=== PATIENT | male | born 1940 | race Caucasian/White ===

== ENCOUNTER 2018-02-08 09:12 | Inpatient (IN) | payer OTHER ==
[~2018-02-08 09:12] MED LIST: BUPIVACAINE 0.75%/DEXT (SPINAL) 2 ML INJ
[2018-02-08] MEDS ORDERED: SOD CHLORIDE 0.9% 1,000 ML IV (09:55)
[2018-02-08] MEDS ORDERED: MAGNESIUM HYDROXIDE 30ML CUP PO (10:00)
[2018-02-08] MEDS ORDERED: NA PHOSPHATE/BIPHOS 133 ML ENEMA PR (10:00)
[2018-02-08] MEDS ORDERED: BISACODYL 10 MG SUPP PR (10:00)
[2018-02-08] MEDS ORDERED: DIPHENHYDRAMINE 50 MG INJ IV ×2 (10:00→13:00)
[2018-02-08] MEDS ORDERED: BETHANECHOL 25 MG TAB PO (10:00)
[2018-02-08] MEDS ORDERED: NALOXONE (0.4 MG/ML) INJ IV ×3 (10:00→13:00)
[2018-02-08] MEDS ORDERED: oxyCODONE 5 MG TAB PO ×2 (10:00)
[2018-02-08] MEDS ORDERED: SENNA/DOCUSATE NA (8.6MG/50MG) TAB PO (10:00)
[2018-02-08] MEDS ORDERED: NEOSTIGMINE 3 MG/3 ML SYRINGE (10:41)
[2018-02-08] MEDS ORDERED: PROPOFOL 20 ML (10:41)
[2018-02-08] MEDS ORDERED: FENTAnyl 50 MCG/ML VIAL (10:41)
[2018-02-08] MEDS ORDERED: ROCURONIUM 50 MG INJ (10:41)
[2018-02-08] MEDS ORDERED: CEFAZOLIN 1 GM INJ (10:41)
[2018-02-08] MEDS ORDERED: MIDAZOLAM 1 MG/ML 2 ML INJ (10:41)
[2018-02-08] MEDS ORDERED: GLYCOPYRROLATE 0.4 MG INJ (10:41)
[2018-02-08] MEDS ORDERED: ONDANSETRON 4 MG INJ (10:42)
[2018-02-08] MEDS ORDERED: ROPIVACAINE 0.5 % 30 ML VIAL (10:42)
[2018-02-08] MEDS ORDERED: DEXAMETHASONE 4 MG/ML 1 ML INJ (10:42)
[2018-02-08] MEDS ORDERED: morphine SULFATE/PF (10 MG/10 ML) INJ (10:42)
[2018-02-08] MEDS ORDERED: TRIMETHOBENZAMIDE 100 MG/ML VIAL IM (13:00)
[2018-02-08] MEDS ORDERED: MEPERIDINE 25 MG INJ IV (13:00)
[2018-02-08] MEDS ORDERED: IPRATROPIUM (NEB) 0.5 MG/2.5 ML AMP HHN (13:00)
[2018-02-08] MEDS ORDERED: ONDANSETRON 4 MG INJ IV (13:00)
[2018-02-08] MEDS ORDERED: EPHEDrine SULFATE 50 MG/5 ML SYG IV (13:00)
[2018-02-08] MEDS ORDERED: hydrALAzine 20 MG INJ IV ×2 (13:00→23:30)
[2018-02-08] MEDS ORDERED: FENTAnyl 50 MCG/ML VIAL IV ×3 (13:00)
[2018-02-08] MEDS ORDERED: HYDROmorphONE 1 MG/5 ML IV SYRINGE IV ×3 (13:00)
[2018-02-08] MEDS ORDERED: ALBUTEROL 0.083% (NEB) 2.5 MG/3 ML AMP HHN (13:00)
[2018-02-08] MEDS ORDERED: MIDAZOLAM 1 MG/ML 2 ML INJ IV (13:00)
[2018-02-08] MEDS ORDERED: LABETALOL HCL 20MG INJ IV (13:00)
[2018-02-08] MEDS ORDERED: OXYCODONE/ACETAMINOPHEN (5/325) TAB PO ×2 (13:00)
[2018-02-08] MEDS: BACITRACIN 50000 UNITS INJ (13:11)
[2018-02-08] MEDS: POLYMYXIN B 500000 UNIT INJ (13:12)
[2018-02-08] MEDS ORDERED: SUGAMMADEX SODIUM 200 MG/2 ML VIAL IV (14:02)
[2018-02-08] MEDS: ONDANSETRON 4 MG INJ IV ×3 (14:29→22:33)
[2018-02-08] MEDS: DOCUSATE SODIUM 100 MG CAP PO (14:30)
[2018-02-08] MEDS: CEFAZOLIN 1 GM/50 ML (PMX) 50 ML IVPB ×2 (14:30→20:43)
[2018-02-08] MEDS: ASPIRIN (EC) 325 MG TAB PO (14:30)
[2018-02-08] MEDS: LACTATED RINGER'S 1,000 ML IV* (16:00)
[2018-02-08] MEDS: CELECOXIB 100 MG CAP PO (20:42)
[2018-02-08] MEDS: TAMSULOSIN (SR) 0.4 MG CAP PO (20:42)
[2018-02-08] MEDS: ATORVASTATIN 10 MG TAB PO (20:42)
[2018-02-08] MEDS: GABAPENTIN 100 MG CAP PO (20:42)
[2018-02-09] MEDS: CEFAZOLIN 1 GM/50 ML (PMX) 50 ML IVPB (04:16)
[2018-02-09] MEDS: ONDANSETRON 4 MG INJ IV (04:16)
[2018-02-09] MEDS: CEFAZOLIN 2 GM/50 ML (PMX) 50 ML IVPB (04:17)
[2018-02-09] MEDS: TRANEXAMIC ACID 1,000 MG in NS 100 ML INTRA-OP X1 IVPB (04:18)
[2018-02-09] MEDS: TRANEXAMIC ACID 1,000 MG in NS 100 ML PRE-OP X1 IVPB (04:18)
[2018-02-09 06:15] LABS: ADD MAN DIFF? NO
[2018-02-09 06:20] LABS: ABNORMAL IP MESSAGE 1; HEMATOCRIT 32.6 % (42.0-52.0); HEMOGLOBIN 10.5 g/dl (14.0-18.0); LYMPHOCYTES # 0.4 10^3/ul (0.8-2.9); MEAN CORPUSCULAR HEMOGLOBIN 27.1 pg (29.0-33.0); MEAN CORPUSCULAR HGB CONC 32.2 g/dl (32.0-37.0); MEAN PLATELET VOLUME 11.4 fl (7.4-10.4); MONOCYTE # 0.6 10^3/ul (0.3-0.9); MONOCYTES % 6.2 % (0.0-11.0); NEUTROPHIL # 8.9 10^3/ul (1.6-7.5); NEUTROPHILS % 89.2 % (39.0-77.0); PLATELET COUNT 180 10^3/UL (140-415); POSITIVE DIFF @See below; RED BLOOD COUNT 3.88 10^6/ul (4.70-6.10); RED CELL DISTRIBUTION WIDTH 16.4 % (11.5-14.5)
[2018-02-09 06:46] LABS: ANION GAP 13 (8-16); BLOOD UREA NITROGEN 15 mg/dl (7-20); CALCIUM 8.5 mg/dl (8.4-10.2); CARBON DIOXIDE 26 mmol/L (21-31); CHLORIDE 104 mmol/L (97-110); CREATININE 0.52 mg/dl (0.61-1.24); GLUCOSE 128 mg/dl (70-220); POTASSIUM 4.5 mmol/L (3.5-5.1); SODIUM 138 mmol/L (135-144)
[2018-02-09] MEDS: CELECOXIB 100 MG CAP PO ×2 (08:46→20:06)
[2018-02-09] MEDS: FERROUS FUMARATE (SR) TAB PO ×2 (08:46→20:07)
[2018-02-09] MEDS: ASPIRIN (EC) 325 MG TAB PO (08:46)
[2018-02-09] MEDS: AMOXICILLIN 500 MG CAP PO ×2 (08:46→20:07)
[2018-02-09] MEDS: DOCUSATE SODIUM 100 MG CAP PO ×2 (08:47→20:07)
[2018-02-09] MEDS: ALLOPURINOL 300 MG TAB PO (08:47)
[2018-02-09] MEDS: FINASTERIDE 5 MG TAB PO (08:47)
[2018-02-09] MEDS: GABAPENTIN 100 MG CAP PO ×2 (08:47→20:07)
[2018-02-09] MEDS: LOSARTAN 50 MG TAB PO (08:48)
[2018-02-09] MEDS ORDERED: NON-FORMULARY/PATIENT OWN MED (Omeprazole* 40 MG) PO (09:00)
[2018-02-09] MEDS: VERAPAMIL (SR) 180 MG TAB PO (11:32)
[2018-02-09] MEDS: TAMSULOSIN (SR) 0.4 MG CAP PO (20:06)
[2018-02-09] MEDS: ATORVASTATIN 10 MG TAB PO (20:07)
[2018-02-10 06:03] LABS: ADD MAN DIFF? NO
[2018-02-10 06:13] LABS: WHITE BLOOD COUNT 8.8 10^3/ul (4.8-10.8)
[2018-02-10 06:13] LABS: BASOPHILS % 0.3 % (0.0-2.0); EOSINOPHILS # 0.1 10^3/ul (0.0-0.5); EOSINOPHILS % 1.4 % (0.0-7.0); HEMATOCRIT 30.2 % (42.0-52.0); HEMOGLOBIN 9.6 g/dl (14.0-18.0); LYMPHOCYTES # 1.5 10^3/ul (0.8-2.9); LYMPHOCYTES % 16.6 % (15.0-51.0); MEAN CORPUSCULAR HEMOGLOBIN 26.8 pg (29.0-33.0); MEAN CORPUSCULAR HGB CONC 31.8 g/dl (32.0-37.0); MEAN CORPUSCULAR VOLUME 84.4 fl (82.0-101.0); MEAN PLATELET VOLUME 11.3 fl (7.4-10.4); MONOCYTE # 1.3 10^3/ul (0.3-0.9); MONOCYTES % 14.9 % (0.0-11.0); NEUTROPHIL # 5.9 10^3/ul (1.6-7.5); NEUTROPHILS % 66.5 % (39.0-77.0); PLATELET COUNT 169 10^3/UL (140-415); RED BLOOD COUNT 3.58 10^6/ul (4.70-6.10); RED CELL DISTRIBUTION WIDTH 16.5 % (11.5-14.5)
[2018-02-10] MEDS: oxyCODONE 5 MG TAB PO ×2 (06:24→10:06)
[2018-02-10] MEDS: PANTOPRAZOLE (EC) 40 MG TAB PO (06:24)
[2018-02-10 06:27] LABS: ANION GAP 9 (8-16); BLOOD UREA NITROGEN 16 mg/dl (7-20); CALCIUM 8.7 mg/dl (8.4-10.2); CARBON DIOXIDE 30 mmol/L (21-31); CHLORIDE 105 mmol/L (97-110); GLUCOSE 90 mg/dl (70-220); SODIUM 140 mmol/L (135-144)
[2018-02-10] MEDS: DOCUSATE SODIUM 100 MG CAP PO (09:00)
[2018-02-10] MEDS: AMOXICILLIN 500 MG CAP PO (09:00)
[2018-02-10] MEDS: LOSARTAN 50 MG TAB PO (09:00)
[2018-02-10] MEDS: ASPIRIN (EC) 325 MG TAB PO (09:00)
[2018-02-10] MEDS: ALLOPURINOL 300 MG TAB PO (09:00)
[2018-02-10] MEDS: CELECOXIB 100 MG CAP PO (09:00)
[2018-02-10] MEDS: GABAPENTIN 100 MG CAP PO (09:02)
[2018-02-10] MEDS: FINASTERIDE 5 MG TAB PO (09:02)
[2018-02-10] MEDS: FERROUS FUMARATE (SR) TAB PO (09:02)
[2018-02-10] MEDS: VERAPAMIL (SR) 180 MG TAB PO (10:07)
== END 2018-02-10 11:30 | disposition home health service (06) | DRG 470 ==
LOC: REC 09:12 → 6WM 15:22
PROC: 0SRD0JA Replacement of Left Knee Joint with Synthetic Substitute, Uncemented, Open Approach (ICD-10-PCS; principal; 2018-02-08 12:10)
DX: M17.12 Unilateral primary osteoarthritis, left knee (principal); I48.92 Unspecified atrial flutter; M21.162 Varus deformity, not elsewhere classified, left knee; I10 Essential (primary) hypertension; M10.9 Gout, unspecified; N40.0 Benign prostatic hyperplasia without lower urinary tract symptoms; E78.5 Hyperlipidemia, unspecified; R00.1 Bradycardia, unspecified; R82.71 Bacteriuria
CPT/HCPCS: 73560; 80048; 85025; 86850; 86900; 86901; 87081; 88304; 88311; 97116; 97161; 97165; 97530